=== PATIENT | male | born 1940 | race Caucasian/White ===

== ENCOUNTER 2021-02-02 05:28 | Emergency (ER) | payer MEDICARE, OTHER, SELFPAY ==
--- NOTE | ~2021-02-02 | XR_ITS ---
EXAMINATION: XR knee LT min 4V DATE: 02/02/2021 06:07 INDICATION: Left knee pain. TECHNIQUE: 4 views of left knee were obtained. COMPARISON: None. FINDINGS: Bone alignment is normal. No fracture. There is mild tricompartmental osteoarthritis charac terized by tiny marginal osteophytes. There is a small knee joint effusion. IMPRESSION: 1. Mild left knee osteoarthritis. 2. Small left knee joint effusion. Reviewed, dictated and finalized at location A.
[2021-02-02 05:38] VITALS: BP 169/68; RESP 24; TEMP 37.4; O2SAT 96
--- NOTE | 2021-02-02 05:45 | PC.NURSE ---
verbal order left knee xray per erp dr wilson
[2021-02-02 05:48] VITALS: BP 169/68; PULSE 111; RESP 18; O2SAT 96
--- NOTE | 2021-02-02 05:49 | PC.NURSE ---
Pt presents to ED with with complaints of left knee pain that onset at 0200. Pt states he has Rheumatoid arthritis and when he has a flare up, the pain increases. Pain starts in left knee and radiates down the leg when he walks. Pt states pain is being treated with tylenol and steroids. Pain meds were changed due to bladder tumors per pt. 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 Pt denies chest pain, nausea, emesis, fever and chills at this time. Pt states sob is chronic and is due to have a cardiac procedure for possible stent placement later today. Pt provided ice pack for pain. Resting on cart with at bedside. Vitals stable and in no obvious distress. . Call button and personal items within reach. Advised to press call button for assistance.
--- NOTE | 2021-02-02 05:56 | PC.NURSE ---
Pt to radiology via cart.
--- NOTE | 2021-02-02 06:03 | PC.NURSE ---
Pt returned from radiology.
--- NOTE | 2021-02-02 06:31 | ED.GENADULT ---
HPI - General Adult General Chief complaint: Extremity Problem,Nontraumatic Stated complaint: left knee pain Time Seen by Provider: 02/02/21 06:12 Source: patient Mode of arrival: ambulatory Limitations: no limitations History of Present Illness HPI narrative: Patient is a 80-year-old male complaining of bilateral hand joint pain and bilateral knee joint pain that started 2 to 3 days ago. Patient states that he is having a rheumatoid arthritis flareup. Patient states that he usually gets steroids for it. 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 Patient denies any calf pain or swelling. Patient denies any redness, warmth or significant swelling of his extremities. Patient denies any chest pain, shortness of breath, dumping, nausea, vomiting, fever or chills. Patient states that he needs to be out of here by certain time since he has a cardiac cath scheduled at 1030 in [place]. Related Data Allergies Allergy/AdvReac Type Severity Reaction Status Date / Time meperidine [From Demerol] Allergy Severe Hallucinati Verified 02/02/21 05:31 ng [id number]-Rbq-Sbz Reductase AdvReac Intermediate Weakness Verified 02/02/21 05:31 Inhibitor Review of Systems Review of Systems: All systems reviewed & are unremarkable except as noted in HPI and below Constitutional: Constitutional: Denies body ache(s), Denies chills, Denies excessive sweating, Denies fatigue, Denies fever(s), Denies headache(s), Denies lethargy, Denies malaise, Denies weakness and Denies weight loss Eyes: Eyes: Denies blurry vision, Denies change in vision and Denies loss of vision ENT: Denies dizziness, Denies ear discharge, Denies headache(s), Denies lip swelling, Denies epistaxis, Denies nasal congestion, Denies neck pain, Denies throat swelling and Denies tongue swelling Cardiovascular: Cardiovascular: Denies chest pain, Denies chest pain at rest, Denies chest pain with activity, Denies diaphoresis, Denies rapid heart rate, Denies edema, Denies irregular heart rhythm, Denies lightheadedness, Denies palpitations, Denies dyspnea and Denies dyspnea on exertion Respiratory: Respiratory: Denies chest congestion, Denies cough, Denies hemoptysis, Denies dyspnea and Denies dyspnea on exertion Gastrointestinal: Gastrointestinal: Denies abdominal pain, Denies melena, Denies hematochezia, Denies diarrhea, Denies nausea, Denies vomiting and Denies hematemesis Musculoskeletal: Musculoskeletal: Denies abnormal gait, Denies deformity, Denies joint swelling, Denies neck pain and Denies numbness Neurologic: Denies Abnormal speech present, Denies abnormal gait, Denies confusion, Denies dizziness, Denies headache(s), Denies focal weakness, Denies loss of vision, Denies numbness, Denies Other visual disturbances, Denies Sensory deficit (Neuro) and Denies weakness Psychiatric: Psychiatric: Denies confusion, Denies depression, Denies auditory hallucinations, Denies homicidal ideation and Denies suicidal ideation Endocrine: Endocrine: Denies cold intolerance, Denies excessive sweating, Denies fatigue, Denies heat intolerance and Denies palpitations Hematologic/Lymphatic: Hematologic/Lymphatic: Denies easy bleeding and Denies easy bruising Allergic/Immunologic: Allergic/Immunologic: Denies lip swelling, Denies throat swelling and Denies tongue swelling PMFSH Comments Past medical history: Rheumatoid arthritis, hypertension, coronary artery disease, atrial fib Family history: Noncontributory Social history: Non-smoker no EtOH or drug use Exam Const: General: cooperative, healthy appearing, comfortable, no acute distress, well developed, alert and awake; No confusion Orientation/consciousness: oriented to person, oriented to place, oriented to time, patient oriented x3 and No confusion Limitations: no limitations HENMT: Head: normal to inspection, normocephalic and atraumatic Ears: hearing grossly normal bilater
[2021-02-02 06:37] VITALS: BP 169/70; PULSE 95; RESP 21; O2SAT 95
[2021-02-02] MEDS: HYDROmorphone HCL INJ (*CRX) 1 MG/ML SYR 0.5 MG IV PUSH (06:38)
[2021-02-02 07:11] VITALS: BP 144/75; PULSE 93; RESP 18; O2SAT 99
== END 2021-02-02 07:40 | disposition home or self-care (01) ==
PROVIDERS: Emergency Provider Emergency Medicine
DX: M06.9 Rheumatoid arthritis, unspecified (principal); I10 Essential (primary) hypertension; I25.10 Atherosclerotic heart disease of native coronary artery without angina pectoris; I48.91 Unspecified atrial fibrillation
CPT/HCPCS: 73564; 96374; 96375; 99284; J1100; J1170

== ENCOUNTER 2021-08-26 14:45 | Emergency (ER) | payer MEDICARE, OTHER, SELFPAY ==
[2021-08-26 15:04] VITALS: BP 136/63; PULSE 88; RESP 16; TEMP 36.6; O2SAT 96
[2021-08-26 16:07] LABS: Add Urine Microscopic? YES; Appearance Urine Cloudy (Clear); Bacteria Urine Trace /hpf; Bilirubin Urine Negative (Negative); Blood Urine 3+ (Negative); Color Urine Amber (Yellow); Glucose Urine UA Negative (Negative); Ketones Urine Negative (Negative); Leukocyte Esterase Ur 3+ LEU/UL (Negative); Nitrate Urine Negative (Negative); Protein Urine 3+ mg/dL (Negative); RBC Urine >75 /hpf (0-2); Specific Grav Ur 1.018 (1.001-1.035); Urobilinogen Urine Negative mg/dL (<2.0); WBC Urine 21-30 /hpf
[2021-08-26 18:28] VITALS: BP 164/95; PULSE 89; RESP 18; O2SAT 95
--- NOTE | 2021-08-26 19:04 | ED.MALEGU ---
HPI - Male Genitourinary General Chief complaint: Urogenital-Male Stated complaint: blood in urine Time Seen by Provider: 08/26/21 18:48 Source: patient Mode of arrival: ambulatory Limitations: no limitations History of Present Illness HPI Narrative: 81 year old male PMH CAD, gout, high cholesterol, angina HTN with history of bladder cancer status post cystoscopy 5 days ago [facility]. Patient arrives today with urinary retention only able to go small amounts 1 out of 10 times. Still passing clots per patient. [facility] because [facility]. No fever, no vomiting, no abdominal pain. No flank pain. Patient does complain of urinary retention, dysuria urgency and blood clots. Related Data Home Medications Medication Instructions Recorded Confirmed [place] 3 Fish Oil 02/02/21 allopurinol 02/02/21 cholecalciferol (vitamin D3) DAILY 02/02/21 [Vitamin D3] colchicine mg DAILY 02/02/21 donepezil mg PO 02/02/21 ezetimibe mg 02/02/21 isosorbide mononitrate mg PO 02/02/21 metoprolol tartrate PO BID 02/02/21 prednisone 5 mg PO DAILY 02/02/21 02/02/21 sulfasalazine 02/02/21 venlafaxine mg PO 02/02/21 warfarin DAILY 02/02/21 Allergies Allergy/AdvReac Type Severity Reaction Status Date / Time meperidine [From Demerol] AdvReac Severe Hallucinati Verified 08/26/21 18:28 ng [id number] Reductase AdvReac Intermediate Weakness Verified 08/26/21 18:28 Inhibitor [Mssxaay-Dxc-Zhg Reductase Inhibitor] Review of Systems Review of Systems: CONSTITUTIONAL: no fever, no weight loss, no confusion EYES: no vision changes, no eye pain ENT: no rhinorrhea, no sore throat, no difficulty swallowing CARDIOVASCULAR: no chest pain, no leg edema, no palpitations RESPIRATORY: no cough, no shortness of breath, no hemoptysis GASTROINTESTINAL: no abdominal pain, no nausea, no vomiting, no diarrhea GENITOURINARY: no flank pain, positive for dysuria, hematuria and urinary retention. SKIN: no rash, no jaundice MUSCULOSKELETAL: no back pain, no trauma. NEUROLOGIC: No headache, no dizziness, no focal weakness PSYCHIATRIC: No hallucinations, no suicidal ideation Exam Narrative: General: alert, afebrile, answering all questions appropriately Head: normocephalic, atraumatic Eyes: EOMI bilaterally, anicteric, no injection ENT: moist mucous membranes, oropharynx patent, no rhinorrhea Neck: supple, trachea midline, no JVD Chest: equal chest rise bilaterally, no chest wall trauma noted Lungs: clear to auscultation bilaterally, respirations unlabored CV: regular rate, no FELY B, calf size equal bilaterally Abd: soft, non-distended, non-tender, no rebound, no gaurding, negative Self's : no CVA tenderness B, bladder distended, tender Back: no lumbar bony tenderness. paraspinal muscles without spasm EXT: no deformity noted, moving all extremities equally Skin: warm, dry, no pallor Neuro: alert, oriented x 3; CN 2-12 grossly intact, no dysarthria Psych: affect appropriate, though content normal Course Course Emergency Course: Urine now clear after liter of three-way CBI, no clots, patient currently taking Bactrim for UTI; still with WBCs, bacteruria, will change to keflex, UCx pending; patient afebrile, feels better; patient does not wish to go home with [place] and leg bag. Understands risks. Vital Signs Vital signs: Vital Signs Temperature 36.6 C 08/26/21 15:04 Pulse Rate 88 08/26/21 15:04 Respiratory Rate 16 08/26/21 15:04 Blood Pressure 136/63 08/26/21 15:04 Pulse Oximetry 96 08/26/21 15:04 Temperature 36.6 C 08/26/21 15:04 Pulse Rate 84 08/26/21 20:07 Respiratory Rate 16 08/26/21 20:07 Blood Pressure 150/90 H 08/26/21 20:07 Pulse Oximetry 99 08/26/21 20:07 MDM - Male Genitourinary MDM Narrative Medical decision making narrative: Patient with history of urinary retention due to blood [place]
[2021-08-26 19:28] LABS: Basophils Percent Auto 0.5 % (0.2-1.2); Eosinophils Absolute Auto 0.1 K/mm3 (0-0.3); Eosinophils Percent Auto 1.7 % (0-4.4); Hematocrit 35.8 % (42.0-52.0); Hemoglobin 12.5 g/dL (14.0-18.0); Immature Granulocyte Absolute 0.03 K/mm3 (0.00-0.031); Immature Granulocyte Percent A 0.4 % (0-0.5); Lymphocytes Absolute Auto 1.95 K/mm3 (0.9-3.2); Lymphocytes Percent Auto 23.4 % (18.3-44.2); Mean Corpuscular HGB Conc 34.9 g/dl (32-36); Mean Corpuscular Hemoglobin 32.3 pg (26-34); Mean Corpuscular Volume 92.5 fl (80-100); Mean Platelet Volume 9.7 fl (7.4-10.4); Monocytes Absolute Auto 0.6 K/mm3 (0.1-0.6); Monocytes Percent Auto 6.7 % (2.6-8.5); Neutrophils Absolute Auto 5.6 K/mm3 (1.3-6.7); Neutrophils Percent Auto 67.3 % (45.5-73.1); Platelet Count Result 169 k/mm3 (150-375); Red Blood Count 3.87 M/mm3 (4.6-6.20); White Blood Count 8.3 K/mm3 (4.5-10.0)
[2021-08-26 19:32] LABS: Alanine Aminotransferase 35 U/L (4-50); Alkaline Phosphatase 49 U/L (38-126); Anion Gap 8 mmol/L (8-16); Aspartate Amino Transferase 56 U/L (17-59); Bilirubin,Total 0.7 mg/dL (0.2-1.3); Blood Urea Nitrogen 15 mg/dL (9-20); Calcium 9.6 mg/dL (8.4-10.2); Carbon Dioxide 25 mmol/L (22-30); Chloride 101 mmol/L (98-107); Estimated CRCL calculation 55 ml/min; Estimated Glomerular Filt Rate > 60; Glucose 117 mg/dL (65-110); Lipase 39 U/L (23-300); Sodium 134 mmol/L (137-145)
[2021-08-26 20:07] VITALS: BP 150/90; PULSE 84; RESP 16; O2SAT 99
== END 2021-08-26 21:00 | disposition home or self-care (01) ==
PROVIDERS: Emergency Medicine; Emergency Provider Emergency Medicine
DX: N30.01 Acute cystitis with hematuria (principal); R33.9 Retention of urine, unspecified; C67.9 Malignant neoplasm of bladder, unspecified; I25.10 Atherosclerotic heart disease of native coronary artery without angina pectoris; M10.9 Gout, unspecified; E78.00 Pure hypercholesterolemia, unspecified; I10 Essential (primary) hypertension; Z79.01 Long term (current) use of anticoagulants
CPT/HCPCS: 36415; 80053; 81001; 83690; 85025; 87086; 99283